=== PATIENT | male | born 2000 | race Caucasian/White ===

== ENCOUNTER 2020-08-02 11:39 | Outpatient (REF) | payer OTHER, SELFPAY ==
[2020-08-06 14:53] LABS: CT PCR NOT DETECTED (Not Detect.); NG PCR NOT DETECTED (Not Detect.)
== END 2020-08-02 11:40 | disposition home or self-care (01) ==
LOC: HO.MANLNP 11:39
PROVIDERS: PCP Physician Assistant; Visit Provider Physician Assistant
DX: Z11.3 Encounter for screening for infections with a predominantly sexual mode of transmission (principal)
CPT/HCPCS: 87491; 87591

== ENCOUNTER 2022-04-14 10:22 | Outpatient (REF) | payer OTHER, SELFPAY ==
[2022-04-14 11:35] LABS: MANUAL DIFF FLAG NO
[2022-04-14 11:39] LABS: Basophils Percent Auto 0.6 % (0-2); Eosinophils Absolute Auto 0.1 X10*3/uL (0.0-0.4); Eosinophils Percent Auto 1.2 % (0-4); Hematocrit 39.6 % (42.0-52.0); Hemoglobin 13.8 g/dl (14.0-18.0); Imm Gran Abs Auto 0.02 X10*3/uL (0.00-0.03); Imm Gran Pct Auto 0.4 % (0.0-0.4); Lymphocytes Absolute Auto 1.6 X10*3/uL (1.2-4.9); Lymphocytes Percent Auto 32.5 % (20-40); Mean Corpuscular HGB Conc 34.8 g/dl (31.0-36.0); Mean Corpuscular Hemoglobin 29.7 pg (27.0-33.0); Mean Corpuscular Volume 85.2 fL (80.0-98.0); Mean Platelet Volume 10.5 fL (9.4-12.4); Monocytes Absolute Auto 0.5 X10*3/uL (0.1-1.2); Monocytes Percent Auto 11.1 % (2-11); Neutrophils Absolute Auto 2.6 x10*3/uL (2.0-8.3); Neutrophils Percent Auto 54.2 % (45-73); Platelet Count 245 X10*3/uL (160-400); Red Blood Count 4.65 X10*6/uL (4.60-5.80); Red Cell Distribution Width 11.9 % (11.0-16.0); White Blood Count 4.9 X10*3/uL (4.8-10.8)
[2022-04-14 12:15] LABS: Alanine Aminotransferase 13 U/L (0-40); Albumin Level 4.8 g/dL (3.5-5.0); Alkaline Phosphatase 75 U/L (39-117); Anion Gap 16 (12-20); Aspartate Amino Transferase 20 U/L (5-37); Bilirubin Total 1.2 mg/dL (0.0-1.0); Blood Urea Nitrogen 13 mg/dL (9-16); Calcium 9.4 mg/dL (8.4-10.2); Carbon Dioxide 23 mmol/L (22-29); Chloride 106 mmol/L (96-108); Estimated Glomerular Filt Rate > 60; Glucose Random 83 mg/dL (60-115); Potassium 4.1 mmol/L (3.3-5.1); Sodium 141 mmol/L (135-145); Total Protein 7.3 g/dL (6.5-8.0)
== END 2022-04-14 10:23 | disposition home or self-care (01) ==
LOC: HO.HMGCLDS 10:22
PROVIDERS: PCP Internal Medicine; Visit Provider Physician Assistant
DX: Z00.00 Encounter for general adult medical examination without abnormal findings (principal)
CPT/HCPCS: 36415; 80053; 85025

== ENCOUNTER 2025-06-18 14:01 | Outpatient (REF) | payer OTHER, SELFPAY ==
--- OUTSIDE RECORDS SUMMARY | 2025-06-18 17:36 | XMS_ITS | Continuity of Care Document ---
Author Organization [facility] Address [address] [place] [address] [place] [address] Assessment No assessment recorded. Plan of Treatment Reminders Order Date Submit Date Provider Last Modified By Organization Details Last Modified Time Details Appointments ANNUAL EXAM 2024 01:30P M YUSRA NICHOLS Not available Not available Not available ANNUAL EXAM 2025 02:15P M YUSRA NICHOLS Not available Not available Not available Lab CMP, serum or plasma 2024 [facility], [address] [place] [address], [id number], 06/18/2025 13:56:25 CBC w/ auto diff 2024 025 [facility], [address] [place] [address], [id number], 06/18/2025 13:56:25 TSH + free T4, serum 2024 [facility], [address] [place] [address], [id number], 06/18/2025 13:56:25 Referral None recorded . Procedures None recorded . Surgeries None recorded . Imaging None recorded . Medication Orders None recorded . Patient TargetsNo targets recorded. Patient InstructionsNo instructions recorded. Reason for Referral None Reported. Problems Name Problem SNOMED Code Status Onset Date Resolution Date Notes Provider Name and Address Organization Details Recorded Time Irritable bowel syndrome 21982840 Active 2019 Amelia dickey [place] - [facility] 0 12:11:27 Depressive disorder 06625842 [facility] 0 12:11:38 Streptococ krystian sore throat 40640626 Active 2021 YUSRA NICHOLS [address] [place] [address], [phone], [facility] 2 11:03:23 Multiple benign melanocyti c nevi 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 2021 YUSRA NICHOLS [address] [place] [address], [id number], [facility] 2 15:51:27 Fatigue 33212377 Active 2021 YUSRA NICHOLS [address] [place] [address], [phone], [facility] 2 15:56:21 Inflammati on of intestine caused by Norovirus 533715051 Active 2022 YUSRA NICHOLS [address] [place] [address], [phone], [facility] 3 14:22:09 Nausea and vomiting 72772264 Active 2022 YUSRA NICHOLS [address] [place] [address], [id number], [facility] 3 11:05:30 Insomnia 398286586 Active 2022 YUSRA NICHOLS [address] [place] [address], [phone], [facility] 3 15:28:00 Low back pain 422329877 Active 2022 YUSRA NICHOLS [address] [place] [address], [address], [facility] 3 15:31:33 Smoker 42631267 Active 2023 YUSRA NICHOLS [address] [place] [address], [phone], [facility] 4 16:12:43 Dyspnea 644871898 Active 2023 YUSRA NICHOLS [address], [place], [address], [facility] 4 16:14:32 Problem Notes None recorded. Procedures Surgical History Date Name Laterality Status Provider Name and Address Organization Details Recorded Time 03/31/20 10 Appendectomy completed Amelia [facility] 03/27/2020 12:11:58 surgical reduction of torsion of testis completed Amelia [facility] 03/29/2020 14:42:26 Imaging Results None recorded. Procedure Notes None recorded. Medical Equipment None Reported. Allergies No known drug allergies Medications Name Sig Start Date Stop Date Status Note LastModified by Organization Details LastModified Time buspirone 5 mg tablet TAKE 1 TABLET BY MOUTH TWICE DAILY 03/24 completed Not Available Not Available Not Available triamcinolo ne acetonide 0.5 % topical cream 04/20 completed Not Available Not Available Not Available cetirizine 10 mg tablet TAKE 1 TABLET BY MOUTH EVERY DAY active Not Available Not Available No t Available Lidocaine Viscous 2 % mucosal solution TAKE 15ML BY MOUTH EVERY 3 HOURS NEEDED FOR 7 DAYS 03/24 completed Not Available Not Available Not Available famotidine 40 mg tablet TAKE 1 TABLET (ORAL) 2 TIMES PER DAY NEEDED FOR 7 DAYS 08/02 completed Not Available Not Available Not Available clonazepam 0.5 mg tablet Take 1 tablet 3 times a day by oral route. 04/20 completed Not Available Not Available Not Available lithium carbonate ER 300 mg tablet,exte nded release TAKE 2 TABLETS BY MOUTH EVERY DAY 08/02 completed Not Available Not Available Not Available bupropion HCl SR 100 mg tablet,12 hr sustained-r elease TAKE ONE TABLET QD PO WITH THE 300 MG TAB 2023 active Not Available Not Available Not Avai lable ondansetron 8 mg disintegrat ing tablet DISSOLVE 1 TABLET ON THE TONGUE TWICE DAILY FOR 14 DAYS NEEDED 04/20 completed Not Available Not Available Not Available amoxicillin 875 mg tablet TAKE 1 TABLET BY MOUTH EVERY 12 HOURS FOR 7 DAYS 03/24 completed Not Available Not Available Not Available buspirone 10 mg tablet Take 1 tablet every day by oral route. 08/02 completed Not Available Not Available Not Available hydroxyzine HCl 25 mg tablet TAKE 1 TABLET BY MOUTH UP TO 4 TIMES DAILY NEEDED FOR ANXIETY 04/20 completed Not Available Not Available Not Available sodium fluoride 1.1 % dental gel 06/06 completed Not Available Not Available Not Available bupropion HCl SR 200 mg tablet,12 hr sustained-r elease TK 2 TS PO QAM 03/24 completed Not Available Not Available Not Available bupropion HCl XL 300 mg 24 hr tablet, extended release TAKE 1 TABLET DAILY 2024 active Not Available Not Available Not Avai lable bupropion HCl XL 150 mg 24 hr tablet, extended release TAKE 1 TABLET BY MOUTH EVERY DAY 09/21 completed Not Available Not Available Not Available Vitals Date Recorded Body height Body mass index (BMI) Body weight Heart rate Oxygen saturation Oxygen saturation in Arterial blood by Pulse oximetry Systolic And Diastolic Provider Name and Address Organization Details Last Updated DateTime 5 182.88 cm 29.2 kg/m2 17292.3 6 g 83 /min 98 % 98 % 130/70 mm[Hg] Jazmin Mckeon [facility] 5 13:45:51 Social History Question Answer Notes LastModified by [employer] ion Details LastModified Time Tobacco Smoking Status Never Smoker vape- also [facility] ELI MORELAND, YUSRA [address] [place] [address], [phone] 03/24/2022 15:30:43 What Is Your Level Of Caffeine Consumption? Heavy Information not available 03/29/2020 What Was The Date Of Your Most Recent Tobacco Screening? 06/18/2025 Information not available 06/18/2025 Sex: Unknown Functional Status Question Answer Note LastModified by Organizat ion Details LastModified Time Do you or have you ever used any other forms of tobacco or nicotine? No [email or web address] Information not available 03/24/2022 What is your level of alcohol consumption? Occasional Information not available 03/29/2020 Do you or have you ever used e-cigarettes or vape? Current user of electronic cigarettes Information not available 03/29/2020 What is your exercise level? Heavy Information not available 03/29/2020 Mental Status None recorded. Family History Relationship Description Onset Age of this Age Resolved Age Notes LastModified by Organization Details LastModified Time Mother Asthma [email or web address] Not available 0 03/27/2020 12:12:53 Mother Arthritis [email or web address] Not availabl e 03/29/2020 14:44:30 Paternal Uncle Celiac disease [email or web address] Not available 2024 13:37:03 Paternal Aunt Juvenile rheumatoid arthritis [email or web address] Not available 2024 13:37:03 Maternal Grandmother Depressive disorder [email or web address] Not available 2019 14:42:49 Maternal Grandmother Malignant neoplastic disease [email or web address] Not available 2024 13:37:03 Maternal Grandfather Alcoholism [email or web address] Not available 13:37:03 Paternal Grandmother Malignant neoplastic disease [email or web address] Not available 2024 13:37:03 Father Alcoholism [email or web address] Not availab le 06/18/2025 13:37:03 Father Hypertensive disorder [email or web address] Not available 2019 14:44:21 Paternal Grandfather Diabetes mellitus [email or web address] Not available 2019 14:43:56 Paternal Grandfather Cerebrovascu lar accident [email or web address] Not available 14:44:08 Medical History No medical history recorded. Immunizations Vaccine Type Date Status Note Provider Nam e and Address Organization Details Recorded Time varicella 3 completed Not Available [facility] 12/25/2022 17:57:53 varicella 2 completed Not Available [facility] 12/25/2022 17:57:53 IPV 6 completed Not Available [facility] 12/25/2022 17:57:53 IPV 2 completed Not Available [facility] 12/25/2022 17:57:53 IPV 1 completed Not Available [facility] 12/25/2022 17:57:53 IPV 1 completed Not Available [facility] 12/25/2022 17:57:53 pneumococcal conjugate PCV 7 2 completed Not Available [facility] 12/25/2022 17:57:53 pneumococcal conjugate PCV 7 1 completed Not Available [facility] 12/25/2022 17:57:53 pneumococcal conjugate PCV 7 1 completed Not Available [facility] 12/25/2022 17:57:53 pneumococcal conjugate PCV 7 1 completed Not Available [facility] 12/25/2022 17:57:53 meningococcal MCV4P 8 completed Not Available [facility] 12/25/2022 17:57:53 meningococcal MCV4P 3 completed Not Available [facility] 12/25/2022 17:57:53 MMR 6 completed Not Available [facility] 12/25/2022 17:57:53 MMR 2 completed Not Available [facility] 12/25/2022 17:57:53 Hep B, adolescent or pediatric 1 completed Not Available [facility] 12/25/2022 17:57:53 Hep B, adolescent or pediatric 1 completed Not Available [facility] 12/25/2022 17:57:53 Hep B, adolescent or pediatric 1 completed Not Available [facility] 12/25/2022 17:57:53 Hep A, ped/adol, 2 dose 8 completed Not Available [facility] 12/25/2022 17:57:53 Hib, unspecified formulation 2 completed Not Available [facility] 12/25/2022 17:57:53 Hib, unspecified formulation 1 completed Not Available [facility] 12/25/2022 17:57:53 Hib, unspecified formulation 1 completed Not Available [facility] 12/25/2022 17:57:53 Hib, unspecified formulation 1 completed Not Available [facility] 12/25/2022 17:57:53 HPV9 6 completed Not Available [facility] 12/25/2022 17:57:53 HPV9 6 completed Not Available [facility] 12/25/2022 17:57:53 HPV9 6 completed Not Available [facility] 12/25/2022 17:57:53 Tdap 3 completed Not Available [facility] 12/25/2022 17:57:53 DTaP 6 completed Not Available [facility] 12/25/2022 17:57:53 DTaP 2 completed Not Available [facility] 12/25/2022 17:57:53 DTaP 1 completed Not Available [facility] 12/25/2022 17:57:53 DTaP 1 completed Not Available [facility] 12/25/2022 17:57:53 DTaP 1 completed Not Available [facility] 12/25/2022 17:57:53 Past Encounters Encounter ID Performer Location Encounter Start Date Encounter Closed Date Diagnosis/Indication Diagnosis SNOMED-CT Code Diagnosis ICD10 Code Diagnosis IMO Codes Diagnosis Note [id number] DO [facility] [address],[place] [address] 06/18/2025 13:36:11 06/18/2025 14:03:14 Depression screening 033509116 Z13.31 negative General ex amination of patient 724159508 Z00.00 822695 BP is excellent Family his tory of Thyroid disorder 802546243 Z83.49 [id number] will set up with labwork Health Concerns Section Related Observation LastModified by Organization Detai ls LastModified Time None Recorded Concern Status LastModified by Organization Details LastModified Time None Recorded Payers Encounter Date Sequence Insurance Name Policy Number Policy Lopez Covered Member ID Lopez Member ID Guarantor Name 06/18/2025 1 [id number] Samir Hansen [id number] Kevin Hansen Notes Date Note Type Note Provider Name a nd Address Organization Details Recorded Time 5 text/html Annual WellnessReported by PatientSocial/Behavio ral HistoryFor diet and nutrition, patient reportshealthy diet,discussed vitamin and supplement use,discussed portion control,discussed maintaining calcium balance, anddiscussed diet improvement. For fracture risk, patient reportsno history of fractures,no recent explained fracture,no sudden unexplained fractures, andno previous musculoskeletal injuries. For physical activity, patient reportsexercises on a regular basis,recent increase in physical activity, andgood physical condition.Functional AbilityFor hearing, patient reportsno loss of hearing. For vision, patient reportsno vision problems(the patient has contact and glassesthe patient is near sighted).uptodate on his dentist apptsROS as noted in the HPI YUSRA NICHOLS [address], [place], [address], [facility] 06/18/2025 13:58:39
--- OUTSIDE RECORDS SUMMARY | 2025-06-18 17:36 | XMS_ITS | Data Portability ---
Author Organization [facility], Telehealth Patient Home Address [address] [place] [address] Assessment Encounter Date Assessment Date Assessment LastModified by Organization Details LastModified Time 02/09/2023 02/09/2023 Patient agreed and verbally consents to this audio and video Telehealth appt via a secure platform [email or web address] Not available 02/09/2023 11:05:35 Plan of Treatment Reminders Order Date Submit Date Provider Last Modified By Organization Details Last Modified Time Details Appointments ANNUAL EXAM 2024 01:30P M YUSRA NICHOLS Not available Not available Not available ANNUAL EXAM 2025 02:15P M YUSRA NICHOLS Not available Not available Not available Lab CMP, serum or plasma 2024 025 [facility], [address] [place] [address], [id number], 06/18/2025 13:56:25 CBC w/ auto diff 2024 025 [facility], [address] [place] [address], [id number], 06/18/2025 13:56:25 TSH + free T4, serum 2024 025 [facility], [address] [place] [address], [address], 06/18/2025 13:56:25 TSH + free T4, serum 2023 024 [facility], [place], [address], 06/06/2024 16:19:45 CMP, serum or plasma 2023 024 [facility], [place], [address], 06/06/2024 16:19:46 CBC w/ auto diff 2023 024 [facility], [place], [address], 06/06/2024 16:19:45 CMP, serum or plasma 2022 023 [facility], [place], [address], 04/22/2023 16:18:45 CBC w/ auto diff 2022 023 [facility], [place], [address], 04/22/2023 16:18:23 testoster one, free + total, serum 2022 023 [facility], [place], [address], 04/26/2023 18:27:46 CMP, serum or plasma 2021 022 [facility] Not available 04/15/2022 13:52:05 CBC w/ auto diff 2021 022 [facility] Not available 04/15/2022 13:52:05 Referral sleep medicine referral 2022 023 [facility], [address] [place], [address], 04/21/2023 08:23:31 orthopedi c surgeon referral 2022 023 [facility], [address] [place], [address], 04/21/2023 08:23:33 dermatolo gist referral 2021 022 gopi Delvalle MD, [address] [facility] , [place], [address], 04/21/2022 09:50:21 sleep medicine referral 2021 022 [email or web address], [address] [place], [address], 03/25/2022 08:45:44 Procedures None recorded. Surgeries None recorded. Imaging PFT, complete 2023 [facility] (Radiology), [address] [place], [address], 06/20/2024 08:35:42 Medication Orders bupropion HCl SR 100 mg tablet,12 hr sustained -release 2023 024 [id number], [address], [place], [id number], 06/06/2024 16:23:17 bupropion HCl XL 150 mg 24 hr tablet, extended release 2022 023 j[id number], [address], [place], [id number], 09/21/2023 07:30:00 ondansetr on 8 mg disintegr ating tablet 2022 023 [id number], [address], [place], [id number], 04/20/2023 15:13:28 Patient TargetsNo targets recorded. Patient InstructionsNo instructions recorded. Reason for Referral Fulfillment Specialist Referral for M ultiple benign melanocytic nevi routine skin check, has a few moles he is concerned about that have been changing Referring Physician: Dania Cook, Internal Medicine, Encounter Date: 03/24/2022 Sleep Medicine Referral for Fatigue possible sleep apnea Referring Physician: Dania Cook, Internal Medicine, Encounter Date: 03/24/2022 Sleep Medicine Referral for Insomnia possible sleep apnea Referring Physician: Dania Cook [facility], Encounter Date: 04/20/2023 Orthopedic Surgeon Referral for Low back pain chonic low back pain Referring Physician: Dania Cook [facility], Encounter Date: 04/20/2023 Results Created Date Observation Date Name Description Value Unit Range Abnormal Flag Note LastModifiedBy Organization Detail LastModifiedTime Result Notes None recorded. Problems Name Problem SNOMED Code Status Onset Date Resolution Date Notes Provider Name and Address Organization Details Recorded Time Irritable bowel syndrome 58068114 [facility] 12:11:27 Depressive disorder 87989407 Active 2019 Amelia dickey [facility] 0 12:11:38 Streptococ krystian sore throat 10765633 Active 2021 YUSRA NICHOLS [address] [place] [address], [address], [facility] 2 11:03:23 Multiple benign melanocyti c nevi 847091210 Active 2021 YUSRA NICHOLS [address] [place] [address], [address], [facility] 2 15:51:27 Fatigue 86779105 Active 2021 YUSRA NICHOLS [address] [place] [address], [address], [facility] 2 15:56:21 Inflammati on of intestine caused by Norovirus 616713058 Active 2022 YUSRA NICHOLS [address] [place] [address], [address], [facility] 3 14:22:09 Nausea and vomiting 73116689 Active 2022 YUSRA NICHOLS [address] [place] [address], [address], [facility] 3 11:05:30 Insomnia 553853025 Active 2022 YUSRA NICHOLS [address] [place], [address], [facility] 3 15:28:00 Low back pain 781998478 Active 2022 YUSRA NICHOLS [address] [place], [address], [facility] 3 15:31:33 Smoker 70966323 Active 2023 YUSRA NICHOLS [address] [place], [address], [facility] 4 16:12:43 Dyspnea 971831337 Active 2023 YUSRA NICHOLS [address] [place], [address], [facility] 4 16:14:32 Problem Notes None recorded. Procedures Surgical History Date Name Laterality Status Provider Name and Address Organization Details Recorded Time 03/31/20 10 Appendectomy completed Amelia Diaz [facility] 03/27/2020 12:11:58 surgical reduction of torsion of testis completed Amelia Diaz [facility] 03/29/2020 14:42:26 Imaging Results None [...] and Address Organization Details Last Updated DateTime 2 184.79 cm 26.5 kg/m2 34579.0 4 g 63 /min 99 % 99 % 128/60 mm[Hg] YUSRA NICHOLS [address] [place], [address] [place] - [facility] 2 15:33:13 Date Recorded Body height Body mass index (BMI) Body weight Heart rate Oxygen saturation Oxygen saturation in Arterial blood by Pulse oximetry Systolic And Diastolic Provider Name and Address Organization Details Last Updated DateTime 3 184.79 cm 29.9 kg/m2 880159. 72 g 73 /min 99 % 99 % 128/62 mm[Hg] YUSRA NICHOLS [address] [place], [address], [facility] 3 15:12:35 Date Recorded Body height Body mass index (BMI) Body weight Heart rate Oxygen saturation Oxygen saturation in Arterial blood by Pulse oximetry Systolic And Diastolic Provider Name and Address Organization Details Last Updated DateTime 4 184.79 cm 25 kg/m2 19307.8 g 76 /min 99 % 99 % 136/88 mm[Hg] Crystal Salmeron [facility] 4 16:07:35 Date Recorded Body height Body mass index (BMI) Body weight Heart rate Oxygen saturation Oxygen saturation in Arterial blood by Pulse oximetry Systolic And Diastolic Provider Name and Address Organization Details Last Updated DateTime 5 182.88 cm 29.2 kg/m2 22869.3 6 g 83 /min 98 % 98 % 130/70 mm[Hg] Jazmin Mckeon [facility] 5 13:45:51 Social History Question Answer Notes LastModified by Organizat ion Details LastModified Time Tobacco Smoking Status Never Smoker vape- also THC YUSRA NICHOLS [address] [place], [address], [facility] 03/24/2022 15:30:43 What Is Your Level Of Caffeine Consumption? Heavy Information not available 03/29/2020 What Was The Date Of Your Most Recent Tobacco Screening? 06/18/2025 [email or web address] Information not available 06/18/2025 Sex: Unknown Functional [...] Recorded Time varicella 3 completed Not Available [facility] 12/25/2022 17:57:53 varicella 2 completed Not Available [facility] 12/25/2022 17:57:53 IPV 6 completed Not Available [facility] 12/25/2022 17:57:53 IPV 2 completed Not Available [facility] 12/25/2022 17:57:53 IPV 1 completed Not Available [facility] 12/25/2022 17:57:53 IPV 1 completed Not Available [facility] 12/25/2022 17:57:53 pneumococcal conjugate PCV 7 2 completed Not Available [facility] 12/25/2022 17:57:53 pneumococcal conjugate PCV 7 1 completed Not Available [facility] 12/25/2022 17:57:53 pneumococcal conjugate PCV 7 1 completed Not Available [facility] 12/25/2022 17:57:53 pneumococcal conjugate PCV 7 1 completed Not Available [facility] 12/25/2022 17:57:53 meningococcal MCV4P 8 completed Not Available [facility] 12/25/2022 17:57:53 meningococcal MCV4P 3 completed Not Available [facility] 12/25/2022 17:57:53 MMR 6 completed Not Available [facility] 12/25/2022 17:57:53 MMR 2 completed Not Available [facility] 12/25/2022 17:57:53 Hep B, adolescent or pediatric 1 completed Not Available [facility] 12/25/2022 17:57:53 Hep B, adolescent or pediatric 1 completed Not Available [facility] 12/25/2022 17:57:53 Hep B, adolescent or pediatric 1 completed Not Available [facility] 12/25/2022 17:57:53 Hep A, ped/adol, 2 dose 8 completed Not Available [facility] 12/25/2022 17:57:53 Hib, unspecified formulation 2 completed Not Available [facility] 12/25/2022 17:57:53 Hib, unspecified formulation 1 completed Not Available [facility] 12/25/2022 17:57:53 Hib, unspecified formulation 1 completed Not Available [facility] 12/25/2022 17:57:53 Hib, unspecified formulation 1 completed Not Available [facility] 12/25/2022 17:57:53 HPV9 6 completed Not Available [facility] 12/25/2022 17:57:53 HPV9 6 completed Not Available [facility] 12/25/2022 17:57:53 HPV9 6 completed Not Available [facility] 12/25/2022 17:57:53 Tdap 3 completed Not Available [facility] 12/25/2022 17:57:53 DTaP 6 completed Not Available [facility] 12/25/2022 17:57:53 DTaP 2 completed Not Available [facility] 12/25/2022 17:57:53 DTaP 1 completed Not Available [facility] 12/25/2022 17:57:53 DTaP 1 completed Not Available [facility] 12/25/2022 17:57:53 DTaP 1 completed Not Available [facility] 12/25/2022 17:57:53 Past Encounters Encounter ID Performer Location Encounter Start Date Encounter Closed Date Diagnosis/Indication Diagnosis SNOMED-CT Code Diagnosis ICD10 Code Diagnosis IMO Codes Diagnosis Note [id number] Moustapha Drake DO [facility] [address] [facility], [place] [address] 03/29/2020 11:40:13 03/29/2020 12:47:59 Fatigue 96639062 R53.83 the patient states he has intermitte nt episodes of extreme fatigue having him worked up for sleep apnea which may be related to other factors like enlarged adenoids, tongue Sleep apnea 19543969 G47 .30 pt states GF notices him having decreased and no breathing at night will send him for sleep medicine to be evaluated as the may explain his excessive sleepiness during the day Depressive disorder 7398 9007 F32.9 sees psychiatry and is given medication through them doing well no concerns or acute flare ups per patient Orthostati c hypotension 15581862 I95.1 related to position only happens when he stands abruptly suggested increased hydration and cautioned against abrupt movement will f/u as needed if this worsens [id number] Moustapha Drake DO [facility] [address] [facility],[place] [address] 08/02/2020 10:25:36 08/02/2020 11:15:46 Active or passive immunization 321687780 Z23 Adult heal th examination 893260517 Z00.00 BP fine Venereal d isease screening 222456751 Z11.3 will check [id number] Moustapha Drake DO [facility] [address] [facility],[place] [address] 12/02/2021 09:08:02 12/02/2021 15:00:11 Streptococcal sore throat 10049780 J02.0 will start on amoxicilli n and lidocaine for treatmentw ork note provided [id number] Moustapha Drake [facility] [address] [facility] [address],[place] [address] 03/24/2022 15:26:30 03/24/2022 16:05:25 Active or passive immunization 002252023 Z23 advised Adult heal th examination 062097501 Z00.00 BP fine Multiple b enign melanocytic nevi 396530105 D22.9 I will fu derm referral Fatigue 23827559 R53.83 will try again for an at home sleep study [id number] Moustapha Drake [facility] [address] [facility] [address],[place] [address] 02/09/2023 09:05:53 02/09/2023 12:00:13 Nausea and vomiting 93955837 R11.2 start PRN zofran Fatigue 66810476 R53.83 will fu if no improvemen t in symptoms [id number] Moustapha Drake [facility] [address] [facility] [address],[place] [address] 04/20/2023 14:53:37 04/20/2023 16:04:20 Active or passive immunization 006697960 Z23 advised Adult [facility] th examination 406064463 Z00.00 BP fine Depressive disorder 3548 9007 F32.9 will set up with the 150 mgchange to 200 mg after the month Irritable bowel syndrome 93168907 K58.8 stable Insomnia 708974624 G47.0 9 issues staying asleepwill set up with a sleep medicine study Low back pain 379968966 M54.59 chronic low back pain and spasms Fatigue 08041738 R53.83 will fu if no improvemen t in symptoms [id number] Moustapha Drake [facility] [address] [facility] [address],[place] [address] 06/06/2024 15:59:26 06/07/2024 08:20:32 Active or passive immunization 361977716 Z23 advised Adult heal th examination 687438970 Z00.00 BP is excellent Depression screening 171 835450 Z13.31 negative Smoker 19431853 F17.201 increase to the 400 mg Dyspnea 073563715 R06.02 PFT to check for possible asthma Family his tory of Thyroid disorder 605578116 Z83.49 will set up with labwork [id number] DO [facility] [address],[place] [address] 06/18/2025 13:36:11 06/18/2025 14:03:14 Depression screening 071359139 Z13.31 negative General ex amination of patient 070289168 Z00.00 884537 BP is excellent Family his tory of Thyroid disorder 649752482 Z83.49 [id number] will set up with labwork Health Concerns Section Related Observation LastModified by Organization Detai ls LastModified Time None Recorded Concern Status LastModified by Organization Details LastModified Time None Recorded Advance Directives Directive None Recorded Payers Insurance Date Sequence Insurance Name Policy Number Policy Lopez Covered Member ID Lopez Member ID Guarantor Name 12/02/2021 2 [facility] (POS) [id number] Hiren Fuentes [id number] Kevin Hansen 06/15/2025 1 SUNNI [id number] Samir Hansen [id number] Kevin Hansen 06/18/2025 2 [facility] (POS) Kevin Hansen [id number] Kevin Hansen Notes Date Note Type Note Provider Name a ny Address Organization Details Recorded Time 2 text/html Annual WellnessReported by PatientSocial/Behavio ral HistoryFor diet and nutrition, patient reportshealthy diet,discussed vitamin and supplement use,discussed portion control,discussed maintaining calcium balance, anddiscussed diet improvement(working on his diet). For fracture risk, patient reportsno history of fractures,no recent explained fracture,no sudden unexplained fractures, andno previous musculoskeletal injuries. For physical activity, patient reportsexercises on a regular basis,recent increase in physical activity, andgood physical condition(working out more). For additional lifestyle factors, patient reportsdrinks alcohol (mild-moderate) (2 to 3 beers per night, more on the weekends)(vapes every day and sometimes a cigarette).Mental Status:For depression risk, patient reportsnever feels sad, empty, or tearful,no loss of interest in activities,no significant changes in weight,no sleep disturbances or insomnia,no agitation,no loss of energy,no feelings of worthlessness or guilt,no thoughts of suicide,no history of depression, andno history of mood disorders(improved).F unctional AbilityFor hearing, patient reportsno loss of hearing. For vision, patient reportsno vision problems. 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 overuse of his joints the patient reports that he has some issues with standing up to quickly he gets very dizzy the patient reports nausea in the morning, the patient does have congestion at night and in the morning > the patient has a sensitive nose as well the patient reports that he has increased sweating in the left arm pit, has hyperhydrosis discussed Tdap, due next year would like to see derm > YUSRA NICHOLS [address] [place], [address], [facility] 03/24/2022 15:59:18 3 text/html ROS as noted in the HPI c/o weakness and fatigue tele-med phone callpt consents to phone call weakness and fatigue for the past two daysstarted yesterday morning; went to work and developed nauseathrew up on the jobwent homefeels subjectively feverishdoes work in pest control but no tick bites, he checks all the time and no other symptoms but will let me know if that changes feels better today, still a little run downneeds work note YUSRA NICHOLS [address] [place], [address], [facility] 02/09/2023 11:10:43 3 text/html Annual WellnessReported by PatientSocial/Behavio ral HistoryFor diet and nutrition, patient reportshealthy diet,discussed vitamin and supplement use,discussed portion control,discussed maintaining calcium balance, anddiscussed diet improvement. For fracture risk, patient reportsno history of fractures,no recent explained fracture,no sudden unexplained fractures, andno previous musculoskeletal injuries. For physical activity, patient reportsexercises on a regular basis,recent increase in physical activity,good physical condition,discussed weightbearing activities, anddiscussed exercise habits(stable). For additional lifestyle factors, patient reportsno tobacco useanddrinks alcohol (mild-moderate) (beer with dinner, few drinks wtih friends during the week).Mental Status:For depression risk, patient reportsnever feels sad, empty, or tearful,no loss of interest in activities,no significant changes in weight,no sleep disturbances or insomnia,no agitation,no loss of energy,no feelings of worthlessness or guilt,no thoughts of suicide,no history of depression, andno history of mood disorders(general lack of motivation and sleeping disturbances).Functio nal AbilityFor hearing, patient reportsno loss of hearing. For vision, patient reportsno vision problems. BP is excellent YUSRA NICHOLS [address] [place], [address], [facility] 04/20/2023 15:42:22 4 text/html Annual WellnessReported by PatientSocial/Behavio ral HistoryFor additional lifestyle factors, patient reportstobacco usebut reportsdrinks alcohol (mild-moderate). For diet and nutrition, patient reportshealthy diet,discussed vitamin and supplement use,discussed portion control,discussed maintaining calcium balance, anddiscussed diet improvement. For fracture risk, patient reportsno history of fractures,no recent explained fracture,no sudden unexplained fractures, andno previous musculoskeletal injuries. For physical activity, patient reportsexercises on a regular basis,recent increase in physical activity,good physical condition,discussed weightbearing activities, anddiscussed exercise habits.Mental Status:For depression risk, patient reportsnever feels sad, empty, or tearful,no loss of interest in activities,no significant changes in weight,no sleep disturbances or insomnia,no agitation,no loss of energy,no feelings of worthlessness or guilt,no thoughts of suicide,no history of depression, andno history of mood disorders.Functional AbilityFor hearing, patient reportsno loss of hearing. For vision, patient reportsno vision problems.ROS as noted in the HPI will set up with PFT testing for possible asthma given smoking and fam hx adjusted bupropion dosing YUSRA NICHOLS [address] [place], [address], [facility] 06/06/2024 16:39:26 5 text/html Annual WellnessReported by PatientSocial/Behavio ral [...] noted in the HPI YUSRA NICHOLS [address] [place], [address], [facility] 06/18/2025 13:58:39
[2025-06-18 18:28] LABS: MANUAL DIFF FLAG NO
[2025-06-18 18:34] LABS: Hematocrit 40.7 % (42.0-52.0); Hemoglobin 14.7 g/dl (14.0-18.0); Imm Gran Abs Auto 0.02 X10*3/uL (0.00-0.03); Imm Gran Pct Auto 0.3 % (0.0-0.4); Lymphocytes Absolute Auto 1.8 X10*3/uL (1.2-4.9); Mean Corpuscular HGB Conc 36.1 g/dl (31.0-36.0); Mean Corpuscular Hemoglobin 30.2 pg (27.0-33.0); Mean Corpuscular Volume 83.7 fL (80.0-98.0); NRBC Abs Auto 0.000 X10*3/uL (0.0-0.012); NRBC Pct Auto 0.0 /100WBC (0.0-0.2); Platelet Count 276 X10*3/uL (160-400); Red Blood Count 4.86 X10*6/uL (4.60-5.80); White Blood Count 6.8 X10*3/uL (4.8-10.8)
[2025-06-18 18:59] LABS: Alanine Aminotransferase 32 U/L (0-40); Albumin Level 5.2 g/dL (3.5-5.0); Alkaline Phosphatase 65 U/L (39-117); Anion Gap 13 (12-20); Aspartate Amino Transferase 31 U/L (5-37); Blood Urea Nitrogen 11 mg/dL (9-16); Calcium 9.2 mg/dL (8.4-10.2); Carbon Dioxide 26 mmol/L (22-29); Chloride 106 mmol/L (96-108); Estimated Glomerular Filt Rate > 60; Potassium 3.7 mmol/L (3.3-5.1); Sodium 141 mmol/L (135-145); Total Protein 7.4 g/dL (6.5-8.0)
== END 2025-06-18 14:02 | disposition home or self-care (01) ==
LOC: HO.MANLDS 14:01
PROVIDERS: Visit Provider Physician Assistant
DX: Z00.00 Encounter for general adult medical examination without abnormal findings (principal); Z83.49 Family history of other endocrine, nutritional and metabolic diseases
CPT/HCPCS: 36415; 80053; 84443; 85025